=== PATIENT | female | born 2005 | race African-American/Black ===

== ENCOUNTER 2025-10-23 15:39 | Emergency (ER) | payer BC, MEDICAID ==
[~2025-10-23] VITALS: Ht 160 cm; Wt 69.5 kg
[~2025-10-23 15:39] MED LIST: AMOXICILLIN; OTC ALLERGY MED
[2025-10-23 18:02] LABS: Hematocrit 39.3 % (36.0-46.0); Hemoglobin 13.0 g/dL (12.2-16.2); Mean Corpuscular Hemoglobin 29.3 pg (28.0-32.0); Mean Corpuscular Volume 88.4 fL (80.0-100.0); Nucleated Red Blood Cells % 0.0 %
[2025-10-23 18:04] LABS: Chloride 105 mmol/L (98-107); Potassium 3.6 mmol/L (3.5-5.1); Sodium 140 mmol/L (136-145)
[2025-10-23 18:05] LABS: Anion Gap 10 (5-15); Calcium 9.8 mg/dL (8.7-10.4); Carbon Dioxide 25 mmol/L (20-31)
[2025-10-23 18:10] LABS: BUN/Creatinine Ratio 13.2 (10.0-20.0); Blood Urea Nitrogen 12 mg/dL (9-23); Glucose 76 mg/dL (74-106)
[2025-10-23 18:59] LABS: Hematocrit 39.4 % (36.0-46.0); Hemoglobin 13.1 g/dL (12.2-16.2); Mean Corpuscular Hemoglobin 29.2 pg (28.0-32.0); Mean Corpuscular Volume 87.7 fL (80.0-100.0); Nucleated Red Blood Cells % 0.1 %
[2025-10-23 19:14] LABS: Alanine Aminotransferase 29 U/L (7-40); Alkaline Phosphatase 65 U/L (46-116); Anion Gap 10 (5-15); BUN/Creatinine Ratio 10.5 (10.0-20.0); Blood Urea Nitrogen 9 mg/dL (9-23); Calcium 9.6 mg/dL (8.7-10.4); Carbon Dioxide 24 mmol/L (20-31); Chloride 105 mmol/L (98-107); Glucose 75 mg/dL (74-106); Potassium 3.5 mmol/L (3.5-5.1); Sodium 139 mmol/L (136-145); Total Protein 8.0 g/dL (5.7-8.2)
[2025-10-23 19:15] LABS: Albumin 4.8 g/dL (3.2-4.8); Bilirubin, Total 0.7 mg/dL (0.2-1.0)
--- NOTE | 2025-10-23 19:21 | ED.PDOC ---
History of Present Illness HPI Comments 20-year-old female presents with chief complaint of palpitations and anxiety. Patient reports history of on and off, multiple palpitations episode over the past year. Today, while at work, patient reports on heart rate shooting up into the 170s range. She states on heart rate going back down whenever laying and up whenever standing. She is currently being seen by her primary care for symptoms to be evaluated for pots and has a referral to Cardiology, currently, but has had no consultation, yet. No reported chest pain, shortness of breath, or further acute symptoms. Chief Complaint: Palpitations Time Seen by MD: 18:30 Primary Care Provider: MANJU Chapin Notes: Nurses Notes Allergies: Coded Allergies: NO KNOWN ALLERGIES (Unverified , 07/12/12) Home Meds Reported Medications [Amoxicillin] No Conflict Check 07/12/12 [Otc Allergy Med] No Conflict Check 07/12/12 Information Source: Patient Mode of Arrival: Ambulatory Severity: Moderate Timing: Hours Duration: Intermittent Prehospital treatment: None Past Medical History PAST MEDICAL HISTORY: Anxiety Surgical History: Denies all surgeries SETTLEMENT AGENT History: No Pertinent SETTLEMENT AGENT History Family History Family History: Unobtainable Social History Smoker: Non-Smoker Alcohol: Denies ETOH Use Drugs: Denies Drug Use Lives In: Home All Other Systems: Reviewed and Negative (Comprehensive review of systems are negative unless otherwise stated in HPI) Physical Exam General Appearance: No Apparent Distress, Normal HEENT: Normal ENT Inspection, Pharynx Normal, TMs Normal Neck: Full Range of Motion, Non-Tender, Normal, Normal Inspection Respiratory: Chest Non-Tender, Lungs Clear, No Accessory Muscle Use, No Respiratory Distress, Normal Breath Sounds Cardiovascular: No Edema, No JVD, No Murmur, No Gallop, Normal Peripheral Pulses, Tachycardia, Other (Regular rhythm) Breast Exam: Deferred Gastrointestinal: No Organomegaly, Non Tender, No Pulsatile Mass, Normal Bowel Sounds, Soft Genitalia: Deferred Pelvic: Deferred Rectal: Deferred Extremities: No calf tenderness, Normal capillary refill, Normal inspection, Normal range of motion, Non-tender, No pedal edema Musculoskeletal : Apperance: Normal Neurologic: Alert, 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 Was a procedure done?: No EKG EKG #1: Pulse Rate (adult): 121 [place]: Normal Cardiac Rhythm: ST Block: None Hypertrophy: None ST: Normal EKG #2: Pulse Rate (adult): 129 [place]: Normal Cardiac Rhythm: ST Block: None Hypertrophy: None ST: Normal Differential Dx Considerations may include: Anxiety, arrhythmia, dehydration, electrolyte imbalance, NM, PE, ACS, among others X-Ray, Labs, Meds, VS Vital Signs Date Time Temp Pulse Resp B/P (MAP) Pulse Ox O2 Delivery O2 Flow Rate FiO2 10/23/25 21:20 97.9 105 20 100/76 (84) 100 97.9 10/23/25 21:20 105 20 100 Room Air* 0 21 10/23/25 19:31 98.4 90 18 112/78 (89) 100 98.4 10/23/25 19:21 129 10/23/25 16:08 129 10/23/25 16:07 121 10/23/25 15:41 98.9 141 16 136/92 96 98.9 Lab Test 10/23/25 20:22 10/23/25 18:40 10/23/25 17:42 Range/Units Urine Color Light-yellow Yellow Urine Clarity Clear Clear Urine pH 6.0 5.0-9.0 Urine Specific [place] 1.025 1.001-1.035 Urine Protein Negative Negative Urine Ketones Negative Negative Urine Blood 2+ H Negative /uL Urine Nitrite Negative Negative Urine Bilirubin Negative Negative Urine Urobilinogen Normal Negative mg/dL Urine Leukocyte Esterase Negative Negative /uL Urine RBC 1 0 - 4 /hpf Urine Microscopic WBC 3 0-5 /HPF Urine Squamous Epithelial Cells Few <5 /hpf Urine Bacteria None seen None Seen /hpf Urine Mucus Few None Seen Urine Glucose Normal Normal mg/dL Urine Test Negative Negative Urine Opiates Screen Neg NEGATIVE Urine Fentanyl Screen Neg NEGATIVE Urine Barbiturates Screen Neg NEGATIVE Urine Phencyclidine Screen Neg NEGATIVE Urine Amphetamines Screen Neg NEGATIVE Urine Benzodiazepines Screen Neg NEGATIVE Urine Cocaine Screen Neg NEGATIVE Urine Cannabinoids Screen Neg NEGATIVE White Blood Count 4.8 4.8 4.4-10.8 10^3/uL Red Blood Count 4.50 4.44 4.0-5.20 10^6/uL Hemoglobin 13.1 13.0 12.2-16.2 g/dL Hematocrit 39.4 39.3 36.0-46.0 % Mean Corpuscular Volume 87.7 88.4 80.0-100.0 fL Mean Corpuscular Hemoglobin 29.2 29.3 28.0-32.0 pg Mean Corpuscular Hemoglobin Concent 33.3 33.1 32.0-36.0 g/dL Red Cell Distribution Width 12.5 12.8 11.8-14.3 % Platelet Count 272 269 140-450 10^3/uL Mean Platelet Volume 8.7 8.7 6.9-10.8 fL Neutrophils (%) (Auto) 34.2 L 40.6 37.0-80.0 % Lymphocytes (%) (Auto) 47.8 40.3 10.0-50.0 % Monocytes (%) (Auto) 8.4 7.0 0.0-12.0 % Eosinophils (%) (Auto) 8.9 H 11.0 H 0.0-7.0 % Basophils (%) (Auto) 0.7 1.1 0.0-2.0 % Neutrophils # (Auto) 1.6 1.9 1.6-8.6 10 ^3/uL Lymphocytes # (Auto) 2.3 1.9 0.4-5.4 10 ^3/uL Monocytes # (Auto) 0.4 0.3 0-1.3 10 ^3/uL Eosinophils # (Auto) 0.4 0.5 0-0.8 10 ^3/uL Basophils # (Auto) 0 0.1 0-0.2 10 ^3/uL Nucleated Red Blood Cells 0.1 0.0 % D-Dimer, Quantitative < 0.19 0.0-0.49 mg/L FEU Sodium Level 139 140 136-145 mmol/L Potassium Level 3.5 3.6 3.5-5.1 mmol/L Chloride Level 105 105 98-107 mmol/L Carbon Dioxide Level 24 25 20-31 mmol/L Anion Gap 10 10 5-15 Blood Urea Nitrogen 9 12 9-23 mg/dL Creatinine 0.86 0.91 0.550-1.02 mg/dL Glomerular Filtration Rate Calc 99 93 >90 mL/min BUN/Creatinine Ratio 10.5 13.2 10.0-20.0 Serum Glucose 75 76 74-106 mg/dL Calcium Level 9.6 9.8 8.7-10.4 mg/dL Total Bilirubin 0.7 0.2-1.0 mg/dL Aspartate Amino Transferase (AST) 29 13-40 U/L Alanine Aminotransferase (ALT) 29 7-40 U/L Alkaline Phosphatase 65 46-116 U/L Troponin I High Sensitivity < 3 L < 3 L </=34 ng/L Total Protein 8.0 5.7-8.2 g/dL Albumin 4.8 3.2-4.8 g/dL Thyroid Stimulating Hormone (TSH) 3.74 0.55-4.78 uIU/mL Free Thyroxine (T4) Calculated Pending Time of 1ST Reevaluation: 19:00 Reevaluation 1ST: Unchanged Patient Education/Counseling: Diagnosis, Treatment, Need For Follow Up Family Education/Counseling: No Family Present SEPSIS Sepsis Screen Date sepsis recognized/suspect: Oct 23, 2025 Time Sepsis recognized/suspect: 1540 Recent Procedure: No On Antibiotic Therapy: No Respiratory Rate >20: No Heart Rate >90: Yes Temp<36 C (96.8 F) or >38.3 C: No SBP <90 or MAP <65 mmHG: No New Acute Mental Status Change: No Is the patient on CPAP, BIPAP,: No Physician Orders Electrocardigram (10/23/25 16:13) Chest Xray 1 View (10/23/25 17:33) Free T4 (Free Thyroxine) (10/23/25 18:28) Vital Signs Date Time Temp Pulse Resp B/P (MAP) Pulse Ox O2 Delivery O2 Flow Rate FiO2 10/23/25 21:20 97.9 105 20 100/76 (84) 100 97.9 10/23/25 21:20 105 20 100 Room Air* 0 21 10/23/25 19:31 98.4 90 18 112/78 (89) 100 98.4 10/23/25 19:21 129 10/23/25 16:08 129 10/23/25 16:07 121 10/23/25 15:41 98.9 141 16 136/92 96 98.9 Laboratory Tests Test 10/23/25 17:42 10/23/25 18:40 White Blood Count 4.8 10^3/uL (4.4-10.8) 4.8 10^3/uL (4.4-10.8) Departure 1 Departure Time of Disposition: 21:00 Impression: Primary Impression: Palpitations Disposition: HOME / SELF CARE / HOMELESS Condition: Stable Discharged With: Self Critical Care Note Critical Care Time?: No Stability Stability form required: No Heart Score Heart Score: Heart Score Response (Comments) Value History Slightly Suspicious 0 EKG Normal 0 Age <45 0 Risk Factors No known risk factors 0 Troponin Normal limit 0 Total 0 I personally scribed for DIEGO SHERMAN MD ([email or web address]) on 10/23/25 at 19:21. Electronically submitted by Otis Wells [email or web address]). DIEGO SHERMAN MD Oct 23, 2025 19:21
[2025-10-23 20:32] LABS: Urine Protein, UAD Negative (Negative)
[2025-10-23 20:43] LABS: Barbiturate Scree,Urine Neg (NEGATIVE); Opiate Scree,Urine Neg (NEGATIVE)
[2025-10-23 20:44] LABS: Amphetamine Screen, Urine Neg (NEGATIVE); Benzodiazephine Screen, Urine Neg (NEGATIVE); Cannabinoid Screen, Urine Neg (NEGATIVE); Cocaine Screen, Urine Neg (NEGATIVE); Phencyclidine Screen, Urine Neg (NEGATIVE)
--- NOTE | 2025-10-23 21:02 | DVH ---
CHEST RADIOGRAPH REASON FOR EXAM: PALPITATIONS COMPARISON: None TECHNIQUE: One view of the chest is provided FINDINGS: The cardiomediastinal silhouette is within normal limits for technique. There is no focal airspace disease. There is no significant pleural effusion. No acute bony abnormality is identified. IMPRESSION: No radiographic evidence of acute cardiopulmonary process.
[2025-10-23 21:20] VITALS: BP 100/76; PULSE 105; RESP 20; TEMP 97.9; O2SAT 100
--- NOTE | 2025-10-24 07:23 | ECG ---
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
--- NOTE | 2025-10-31 14:08 | ECG ---
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
== END 2025-10-23 21:24 | disposition home or self-care (01) ==
LOC: ER 15:39
DX: R00.2 Palpitations (principal); F41.9 Anxiety disorder, unspecified; Z79.899 Other long term (current) drug therapy
CPT/HCPCS: 36415; 71045; 80048; 80053; 80307; 81001; 81025; 84439; 84443; 84484; 85025; 85379; 93005